=== PATIENT | male | born 1965 ===

== ENCOUNTER 2023-10-07 14:45 | Inpatient (IN) | payer SELFPAY ==
[2023-10-07 16:02] LABS: A/G RATIO 1.1; ACETAMINOPHEN 0 ug/mL (10-30 (Therapeutic)); ALANINE AMINOTRANSFERASE,ALT 15 U/L (16-63); ALBUMIN 3.9 g/dL (3.4-5.0); ALKALINE PHOSPHATASE 85 U/L (46-116); ANION GAP 9.1 mEq/L (7-13); ASPARTATE AMNIOTRANSFERASE,AST 11 U/L (15-37); BILIRUBIN TOTAL 0.9 mg/dL (0.2-1.0); BLOOD UREA NITROGEN,BUN 13 mg/dL (7-18); BUN/CREATININE RATIO 13.3 (No establ ref range); CALCIUM 9.2 mg/dL (8.5-10.1); CARBON DIOXIDE,CO2 31 mmol/L (21-32); CHLORIDE,CL 103 mmol/L (98-107); CREATININE 0.98 mg/dL (0.70-1.30); EST CRCL DRUG DOSING (CG) 79.49 mL/min; ESTIMATED GFR 89 mL/min (>=60); ETHANOL BLOOD MEDICAL < 3 mg/dL (0); GLUCOSE RANDOM 121 mg/dL (70-99); POTASSIUM,K 3.1 mmol/L (3.5-5.1); PROTEIN TOTAL,TP 7.5 g/dL (6.4-8.2); SODIUM,NA 140 mmol/L (136-145)
[2023-10-07 16:06] LABS: BASOPHILS PERCENT AUTO 0.5 % (0.0-1.0); EOSINOPHILS PERCENT AUTO 2.9 % (1.0-3.0); HEMATOCRIT 53.7 % (40.0-54.0); HEMOGLOBIN 18.9 g/dL (14.0-18.0); LYMPHOCYTES PERCENT AUTO 24.7 % (20.5-50.1); MEAN CORPUSCULAR HEMOGLOBIN 35.5 pg (27.0-34.0); MEAN CORPUSCULAR HGB CONC 35.2 g/dL (33.0-35.0); MEAN CORPUSCULAR VOLUME 100.9 fL (80-100); MONOCYTES PERCENT AUTO 13.8 % (2-8); NEUTROPHILS PERCENT AUTO 58.1 % (42.2-75.2); PLATELET COUNT,PLT 164 10^3/uL (150-450); RED BLOOD CELL COUNT 5.32 10^6/uL (4.6-6.2)
[2023-10-07] MEDS ORDERED: Lactated Ringers 1,000 ML IV ONE (16:12)
[2023-10-07 16:15] LABS: CORONAVIRUS COVID-19 NAA NEGATIVE (NEGATIVE); INFLUENZA A NAA NEGATIVE (NEGATIVE); INFLUENZA B NAA NEGATIVE (NEGATIVE)
[2023-10-07] MEDS ORDERED: Aspirin 81 MG Tab.Chew PO ONE (16:58)
[2023-10-07] MEDS ORDERED: Clopidogrel 75 MG Tab PO ONE (16:58)
[2023-10-07] MEDS ORDERED: hydrALAZINE 20 MG/ML SDV IVPUSH ONE (16:59)
[2023-10-07] MEDS ORDERED: Naloxone 2 MG/2 ML Syringe IVPUSH PRN (17:21)
[2023-10-07] MEDS ORDERED: Sennosides/Docusate Sodium 50-8.6 MG Tab PO PRN (17:21)
[2023-10-07] MEDS ORDERED: Albuterol/Ipratropium 3.0-0.5 MG/3 ML Neb Soln NEB PRN (17:21)
[2023-10-07] MEDS ORDERED: HYDROmorphone 0.5 MG/0.5 ML Syringe IVPUSH PRN (17:21)
[2023-10-07] MEDS ORDERED: Magnesium Hydroxide 400 MG/5 ML Susp 30 ML Cup PO PRN (17:21)
[2023-10-07 17:23] LABS: HEMOGLOBIN A1C 4.8 % (<5.7)
[2023-10-07 17:27] LABS: APPEARANCE,URINE CLEAR (CLEAR); BILIRUBIN,URINE NEGATIVE (NEGATIVE); COLOR,URINE YELLOW (YELLOW); GLUCOSE,URINE NEGATIVE (NEGATIVE); KETONES,URINE NEGATIVE (NEGATIVE); LEUKOCYTE ESTERASE,URINE NEGATIVE (NEGATIVE); NITRITE,URINE NEGATIVE (NEGATIVE); OCCULT BLOOD,URINE NEGATIVE (NEGATIVE); PROTEIN,URINE NEGATIVE (NEGATIVE)
[2023-10-07 17:28] LABS: AMPHETAMINES,URINE NEGATIVE (NEGATIVE); BARBITURATES,URINE NEGATIVE (NEGATIVE); BENZODIAZEPINE,URINE NEGATIVE (NEGATIVE); MDMA (ECSTASY), URINE NEGATIVE (NEGATIVE); METHADONE,URINE NEGATIVE (NEGATIVE); METHAMPHETAMINES,URINE NEGATIVE (NEGATIVE); OPIATES,URINE NEGATIVE (NEGATIVE); OXYCODONE,URINE NEGATIVE (NEGATIVE); PHENCYCLIDINE,URINE NEGATIVE (NEGATIVE); TCA,URINE NEGATIVE (NEGATIVE)
[2023-10-07] MEDS ORDERED: 50% Dextrose in Water 50 ML Syringe IVPUSH PRN (17:28)
[2023-10-07] MEDS ORDERED: Glucagon,Human Recombinant 1 MG Vial IM PRN (17:28)
[2023-10-07] MEDS ORDERED: Potassium Chloride 20 MEQ in Premix Bag 1 BAG IV ONE (17:32)
[2023-10-07 17:34] LABS: T4 FREE 1.03 ng/dL (0.76-1.46); TSH ULTRASENSITIVE 1.38 uIU/mL (0.36-3.74)
[2023-10-07] MEDS ORDERED: MVI, Adult with Vitamin K 10 ML, Folic Acid 1 MG, Thiamine 100 MG in Lactated Ringers 1... IV ONE ×4 (18:02)
[2023-10-07] MEDS ORDERED: Thiamine 100 MG in Sodium Chloride 0.9% 50 ML IV ONE (18:02)
[2023-10-07] MEDS ORDERED: Haloperidol Lactate 5 MG/ML SDV IM PRN (18:02)
[2023-10-07] MEDS ORDERED: LORazepam 2 MG/ML SDV IV PRN (18:02)
[2023-10-07] MEDS ORDERED: LORazepam 0.5 MG Tab PO PRN (18:02)
[2023-10-07] MEDS: niCARdipine/Normal Saline 20 MG in Premix Bag 1 BAG IV SCH ×2 (18:45→22:48)
[2023-10-07] MEDS ORDERED: Temazepam 15 MG Cap PO PRN (20:20)
[2023-10-07] MEDS ORDERED: Nicotine 21 MG/24 Hr Patch TRDERM ONE (20:38)
[2023-10-07] MEDS: Melatonin 3 MG Tab PO PRN (22:30)
[2023-10-08] MEDS: Pantoprazole 40 MG Tab.CR PO SCH (05:40)
[2023-10-08 05:59] LABS: BASOPHILS PERCENT AUTO 0.7 % (0.0-1.0); EOSINOPHILS PERCENT AUTO 3.1 % (1.0-3.0); HEMATOCRIT 49.7 % (40.0-54.0); HEMOGLOBIN 17.4 g/dL (14.0-18.0); LYMPHOCYTES PERCENT AUTO 24.7 % (20.5-50.1); MEAN CORPUSCULAR HEMOGLOBIN 35.2 pg (27.0-34.0); MEAN CORPUSCULAR VOLUME 100.6 fL (80-100); MONOCYTES PERCENT AUTO 12.9 % (2-8); NEUTROPHILS PERCENT AUTO 58.6 % (42.2-75.2); PLATELET COUNT,PLT 153 10^3/uL (150-450); RED BLOOD CELL COUNT 4.94 10^6/uL (4.6-6.2); WHITE BLOOD CELL COUNT,WBC 6.1 10^3/uL (5.0-10.0)
[2023-10-08 06:26] LABS: ANION GAP 9.1 mEq/L (7-13); BILIRUBIN TOTAL 1.4 mg/dL (0.2-1.0); CALCIUM 8.4 mg/dL (8.5-10.1); CREATININE 0.78 mg/dL (0.70-1.30); EST CRCL DRUG DOSING (CG) 109.95 mL/min; MAGNESIUM 1.9 mg/dL (1.8-2.4); POTASSIUM,K 3.1 mmol/L (3.5-5.1); PROTEIN TOTAL,TP 6.2 g/dL (6.4-8.2)
[2023-10-08 06:30] LABS: A/G RATIO 0.94
[2023-10-08] MEDS: Hydrochlorothiazide 25 MG Tab PO SCH (08:15)
[2023-10-08] MEDS: Insulin Lispro 100 Units/ML 3 ML Vial SUBCUT SCH ×3 (08:19→17:12)
[2023-10-08] MEDS ORDERED: Losartan 25 MG Tab PO SCH (09:00)
[2023-10-08] MEDS ORDERED: FLU (Fluarix Quad) QS2023-24(6MOS UP)/PF 60 MCG/0.5 ML Syringe IM ONE (10:00)
[2023-10-08] MEDS ORDERED: Potassium Chloride 10 MEQ Tab.ER PO ONE ×2 (11:24→17:00)
[2023-10-08] MEDS ORDERED: Metoprolol Tartrate 5 MG/5 ML SDV IVPUSH PRN (12:03)
[2023-10-08] MEDS ORDERED: Aspirin 81 MG Tab.Chew PO ONE (12:03)
[2023-10-08] MEDS ORDERED: cloNIDine 0.1 MG Tab PO ONE (12:04)
[2023-10-08] MEDS: hydrALAZINE 20 MG/ML SDV IVPUSH PRN ×2 (12:19→16:46)
[2023-10-08] MEDS: Acetaminophen 325 MG Tab PO PRN (17:26)
[2023-10-08] MEDS: cloNIDine 0.1 MG Tab PO SCH (20:25)
[2023-10-08] MEDS: Multivitamin Tab PO SCH (20:34)
[2023-10-08] MEDS: Folic Acid 1 MG Tab PO SCH (20:34)
[2023-10-08] MEDS: Thiamine 100 MG Tab PO SCH (20:34)
[2023-10-09] MEDS: Pantoprazole 40 MG Tab.CR PO SCH (06:08)
[2023-10-09] MEDS: hydrALAZINE 20 MG/ML SDV IVPUSH PRN ×2 (06:08→12:13)
[2023-10-09 06:27] LABS: BASOPHILS PERCENT AUTO 0.2 % (0.0-1.0); EOSINOPHILS PERCENT AUTO 1.2 % (1.0-3.0); HEMATOCRIT 50.6 % (40.0-54.0); HEMOGLOBIN 17.5 g/dL (14.0-18.0); LYMPHOCYTES PERCENT AUTO 12.8 % (20.5-50.1); MEAN CORPUSCULAR HEMOGLOBIN 35.2 pg (27.0-34.0); MEAN CORPUSCULAR HGB CONC 34.6 g/dL (33.0-35.0); MEAN CORPUSCULAR VOLUME 101.8 fL (80-100); NEUTROPHILS PERCENT AUTO 73.8 % (42.2-75.2); PLATELET COUNT,PLT 173 10^3/uL (150-450); RED BLOOD CELL COUNT 4.97 10^6/uL (4.6-6.2); WHITE BLOOD CELL COUNT,WBC 9.8 10^3/uL (5.0-10.0)
[2023-10-09 06:48] LABS: ALBUMIN 3.1 g/dL (3.4-5.0); ANION GAP 10.5 mEq/L (7-13); BILIRUBIN TOTAL 1.7 mg/dL (0.2-1.0); BUN/CREATININE RATIO 12.2 (No establ ref range); CALCIUM 8.6 mg/dL (8.5-10.1); CREATININE 0.98 mg/dL (0.70-1.30); EST CRCL DRUG DOSING (CG) 87.51 mL/min; MAGNESIUM 1.9 mg/dL (1.8-2.4); POTASSIUM,K 3.5 mmol/L (3.5-5.1); PROTEIN TOTAL,TP 6.5 g/dL (6.4-8.2)
[2023-10-09 06:52] LABS: A/G RATIO 0.91
[2023-10-09] MEDS: Aspirin 81 MG Tab.Chew PO SCH (08:23)
[2023-10-09] MEDS: Losartan 25 MG Tab PO SCH (08:24)
[2023-10-09] MEDS: Thiamine 100 MG Tab PO SCH (08:25)
[2023-10-09] MEDS: Hydrochlorothiazide 25 MG Tab PO SCH (08:25)
[2023-10-09] MEDS: Folic Acid 1 MG Tab PO SCH (08:25)
[2023-10-09] MEDS: Multivitamin Tab PO SCH (08:25)
[2023-10-09] MEDS: Insulin Lispro 100 Units/ML 3 ML Vial SUBCUT SCH ×3 (08:26→17:09)
[2023-10-09] MEDS: Acetaminophen 325 MG Tab PO PRN (10:59)
[2023-10-09] MEDS: traMADol 50 MG Tab PO PRN (12:11)
[2023-10-09] MEDS: cloNIDine 0.1 MG Tab PO SCH (20:05)
[2023-10-10] MEDS: Pantoprazole 40 MG Tab.CR PO SCH (05:45)
[2023-10-10 05:47] LABS: BASOPHILS PERCENT AUTO 0.2 % (0.0-1.0); EOSINOPHILS PERCENT AUTO 0.5 % (1.0-3.0); HEMATOCRIT 49.8 % (40.0-54.0); HEMOGLOBIN 17.3 g/dL (14.0-18.0); LYMPHOCYTES PERCENT AUTO 11.8 % (20.5-50.1); MEAN CORPUSCULAR HEMOGLOBIN 35.3 pg (27.0-34.0); MEAN CORPUSCULAR HGB CONC 34.7 g/dL (33.0-35.0); MEAN CORPUSCULAR VOLUME 101.6 fL (80-100); MONOCYTES PERCENT AUTO 17.2 % (2-8); NEUTROPHILS PERCENT AUTO 70.3 % (42.2-75.2); PLATELET COUNT,PLT 164 10^3/uL (150-450)
[2023-10-10 06:16] LABS: ALBUMIN 3.1 g/dL (3.4-5.0); ANION GAP 10.5 mEq/L (7-13); BILIRUBIN TOTAL 2.6 mg/dL (0.2-1.0); BUN/CREATININE RATIO 16.3 (No establ ref range); CALCIUM 8.8 mg/dL (8.5-10.1); CREATININE 0.92 mg/dL (0.70-1.30); EST CRCL DRUG DOSING (CG) 93.22 mL/min; POTASSIUM,K 3.5 mmol/L (3.5-5.1); PROTEIN TOTAL,TP 6.9 g/dL (6.4-8.2)
[2023-10-10 06:24] LABS: A/G RATIO 0.82
[2023-10-10] MEDS: Insulin Lispro 100 Units/ML 3 ML Vial SUBCUT SCH ×3 (08:14→18:43)
[2023-10-10] MEDS: Losartan 25 MG Tab PO SCH (08:25)
[2023-10-10] MEDS: traMADol 50 MG Tab PO PRN (08:26)
[2023-10-10] MEDS: Multivitamin Tab PO SCH (08:27)
[2023-10-10] MEDS: Thiamine 100 MG Tab PO SCH (08:27)
[2023-10-10] MEDS: Aspirin 81 MG Tab.Chew PO SCH (08:27)
[2023-10-10] MEDS: Hydrochlorothiazide 25 MG Tab PO SCH (08:27)
[2023-10-10] MEDS: Atenolol 25 MG Tab PO SCH ×2 (08:27→20:37)
[2023-10-10] MEDS: Folic Acid 1 MG Tab PO SCH (08:27)
[2023-10-10] MEDS ORDERED: Lidocaine 5% 700 MG Patch TOP ONE (10:34)
[2023-10-10] MEDS: Acetaminophen/oxyCODONE 325-5 MG Tab PO PRN ×2 (11:21→23:58)
[2023-10-10] MEDS: cloNIDine 0.1 MG Tab PO SCH ×2 (11:22→20:38)
[2023-10-10] MEDS: amLODIPine 5 MG Tab PO SCH (20:37)
[2023-10-10] MEDS: Acetaminophen 325 MG Tab PO PRN (20:46)
[2023-10-10] MEDS: hydrALAZINE 20 MG/ML SDV IVPUSH PRN (20:47)
[2023-10-11] MEDS: Pantoprazole 40 MG Tab.CR PO SCH ×2 (05:37→16:30)
[2023-10-11 06:22] LABS: URIC ACID 8.5 mg/dL (3.5-7.2)
[2023-10-11 06:25] LABS: C-REACTIVE PROTEIN > 25.00 ng/dL (<=0.50)
[2023-10-11] MEDS: Insulin Lispro 100 Units/ML 3 ML Vial SUBCUT SCH ×3 (08:18→16:30)
[2023-10-11] MEDS: Atenolol 25 MG Tab PO SCH ×2 (08:26→20:40)
[2023-10-11] MEDS: Thiamine 100 MG Tab PO SCH (08:27)
[2023-10-11] MEDS: Losartan 25 MG Tab PO SCH (08:27)
[2023-10-11] MEDS: Aspirin 81 MG Tab.Chew PO SCH (08:27)
[2023-10-11] MEDS: cloNIDine 0.1 MG Tab PO SCH ×2 (08:27→20:41)
[2023-10-11] MEDS: Hydrochlorothiazide 25 MG Tab PO SCH (08:27)
[2023-10-11] MEDS: Lidocaine 5% 700 MG Patch TOP SCH (08:28)
[2023-10-11] MEDS: Multivitamin Tab PO SCH (08:32)
[2023-10-11] MEDS: Acetaminophen 325 MG Tab PO PRN (08:32)
[2023-10-11] MEDS: Polyethylene Glycol 3350 Powder 17 GM Packet PO PRN (08:33)
[2023-10-11] MEDS: Dexamethasone 4 MG Tab PO SCH (09:50)
[2023-10-11] MEDS: Furosemide 40 MG Tab PO SCH (09:50)
[2023-10-11] MEDS: Naproxen 250 MG Tab PO SCH ×2 (09:50→20:42)
[2023-10-11] MEDS ORDERED: Colchicine 0.6 MG Tab PO ONE (10:29)
[2023-10-11] MEDS: traMADol 50 MG Tab PO PRN (14:28)
[2023-10-11] MEDS: Nicotine 21 MG/24 Hr Patch TRDERM PRN (15:46)
[2023-10-11] MEDS: Colchicine 0.6 MG Tab PO SCH (20:40)
[2023-10-11] MEDS: amLODIPine 5 MG Tab PO SCH (20:42)
[2023-10-12] MEDS: Pantoprazole 40 MG Tab.CR PO SCH ×2 (05:23→16:55)
[2023-10-12] MEDS: Lidocaine 5% 700 MG Patch TOP SCH (08:53)
[2023-10-12] MEDS: cloNIDine 0.1 MG Tab PO SCH (08:54)
[2023-10-12] MEDS: Furosemide 40 MG Tab PO SCH (08:54)
[2023-10-12] MEDS: Aspirin 81 MG Tab.Chew PO SCH (08:54)
[2023-10-12] MEDS: Naproxen 250 MG Tab PO SCH ×2 (08:55→20:30)
[2023-10-12] MEDS: Colchicine 0.6 MG Tab PO SCH ×2 (08:55→20:31)
[2023-10-12] MEDS: Losartan 25 MG Tab PO SCH (08:55)
[2023-10-12] MEDS: Multivitamin Tab PO SCH (08:55)
[2023-10-12] MEDS: Dexamethasone 4 MG Tab PO SCH (08:55)
[2023-10-12] MEDS: Thiamine 100 MG Tab PO SCH (08:58)
[2023-10-12] MEDS: Insulin Lispro 100 Units/ML 3 ML Vial SUBCUT SCH ×3 (09:00→18:17)
[2023-10-12] MEDS: Atenolol 25 MG Tab PO SCH ×2 (09:49→20:30)
[2023-10-12] MEDS ORDERED: Haloperidol Lactate 5 MG/ML SDV IM PRN (17:47)
[2023-10-12] MEDS ORDERED: MVI, Adult with Vitamin K 10 ML, Folic Acid 1 MG, Thiamine 100 MG in Lactated Ringers 1... IV ONE ×4 (17:52)
[2023-10-12] MEDS ORDERED: Flumazenil 0.1 MG/ML 5 ML MDV IVPUSH PRN (20:21)
[2023-10-12] MEDS: chlordiazePOXIDE 25 MG Cap PO SCH (20:30)
[2023-10-12] MEDS: amLODIPine 5 MG Tab PO SCH (20:30)
[2023-10-12] MEDS ORDERED: QUEtiapine 25 MG Tab PO SCH (21:00)
[2023-10-12] MEDS: LORazepam 2 MG/ML SDV IV PRN (22:46)
[2023-10-13] MEDS: Pantoprazole 40 MG Tab.CR PO SCH ×2 (05:00→15:07)
[2023-10-13] MEDS: LORazepam 2 MG/ML SDV IV PRN (05:12)
[2023-10-13 07:05] LABS: ALBUMIN 2.8 g/dL (3.4-5.0); ANION GAP 12.4 mEq/L (7-13); BILIRUBIN TOTAL 1.8 mg/dL (0.2-1.0); BUN/CREATININE RATIO 37.6 (No establ ref range); CALCIUM 9.2 mg/dL (8.5-10.1); CREATININE 1.57 mg/dL (0.70-1.30); EST CRCL DRUG DOSING (CG) 54.62 mL/min; MAGNESIUM 2.6 mg/dL (1.8-2.4); POTASSIUM,K 3.4 mmol/L (3.5-5.1); PROTEIN TOTAL,TP 7.1 g/dL (6.4-8.2)
[2023-10-13 07:05] LABS: BASOPHILS PERCENT AUTO 0.2 % (0.0-1.0); EOSINOPHILS PERCENT AUTO 0.9 % (1.0-3.0); HEMATOCRIT 49.6 % (40.0-54.0); HEMOGLOBIN 17.3 g/dL (14.0-18.0); LYMPHOCYTES PERCENT AUTO 12.1 % (20.5-50.1); MEAN CORPUSCULAR HEMOGLOBIN 35.5 pg (27.0-34.0); MEAN CORPUSCULAR HGB CONC 34.9 g/dL (33.0-35.0); MEAN CORPUSCULAR VOLUME 101.8 fL (80-100); MONOCYTES PERCENT AUTO 14.1 % (2-8); NEUTROPHILS PERCENT AUTO 72.7 % (42.2-75.2); PLATELET COUNT,PLT 307 10^3/uL (150-450); RED BLOOD CELL COUNT 4.87 10^6/uL (4.6-6.2); WHITE BLOOD CELL COUNT,WBC 8.9 10^3/uL (5.0-10.0)
[2023-10-13 07:10] LABS: A/G RATIO 0.65
[2023-10-13 07:29] LABS: C-REACTIVE PROTEIN 15.24 ng/dL (<=0.50)
[2023-10-13] MEDS ORDERED: Potassium Chloride 10 MEQ Tab.ER PO ONE ×2 (11:30→12:15)
[2023-10-13] MEDS: Lidocaine 5% 700 MG Patch TOP SCH (12:08)
[2023-10-13] MEDS: Multivitamin Tab PO SCH (12:09)
[2023-10-13] MEDS: Polyethylene Glycol 3350 Powder 17 GM Packet PO PRN (12:09)
[2023-10-13] MEDS: Atenolol 25 MG Tab PO SCH ×2 (12:10→21:08)
[2023-10-13] MEDS: chlordiazePOXIDE 25 MG Cap PO SCH ×3 (12:10→21:07)
[2023-10-13] MEDS: Naproxen 250 MG Tab PO SCH (12:10)
[2023-10-13] MEDS: Thiamine 100 MG Tab PO SCH (12:10)
[2023-10-13] MEDS: Folic Acid 1 MG Tab PO SCH (12:10)
[2023-10-13] MEDS: Furosemide 40 MG Tab PO SCH (12:10)
[2023-10-13] MEDS: Losartan 25 MG Tab PO SCH (12:11)
[2023-10-13] MEDS: Colchicine 0.6 MG Tab PO SCH ×2 (12:11→21:06)
[2023-10-13] MEDS: Aspirin 81 MG Tab.Chew PO SCH (12:13)
[2023-10-13] MEDS: Insulin Lispro 100 Units/ML 3 ML Vial SUBCUT SCH ×2 (12:40→18:08)
[2023-10-13] MEDS: amLODIPine 5 MG Tab PO SCH (21:06)
[2023-10-14] MEDS: chlordiazePOXIDE 25 MG Cap PO SCH ×3 (06:17→20:08)
[2023-10-14] MEDS: Pantoprazole 40 MG Tab.CR PO SCH ×2 (06:17→15:08)
[2023-10-14 06:37] LABS: BASOPHILS PERCENT AUTO 0.9 % (0.0-1.0); EOSINOPHILS PERCENT AUTO 4.2 % (1.0-3.0); HEMATOCRIT 52.6 % (40.0-54.0); HEMOGLOBIN 17.7 g/dL (14.0-18.0); LYMPHOCYTES PERCENT AUTO 24.6 % (20.5-50.1); MEAN CORPUSCULAR HEMOGLOBIN 34.6 pg (27.0-34.0); MEAN CORPUSCULAR HGB CONC 33.7 g/dL (33.0-35.0); MEAN CORPUSCULAR VOLUME 102.7 fL (80-100); MONOCYTES PERCENT AUTO 17.4 % (2-8); NEUTROPHILS PERCENT AUTO 52.9 % (42.2-75.2); PLATELET COUNT,PLT 218 10^3/uL (150-450); RED BLOOD CELL COUNT 5.12 10^6/uL (4.6-6.2); WHITE BLOOD CELL COUNT,WBC 5.5 10^3/uL (5.0-10.0)
[2023-10-14 06:56] LABS: ALBUMIN 2.9 g/dL (3.4-5.0); ANION GAP 11.5 mEq/L (7-13); BILIRUBIN TOTAL 2.3 mg/dL (0.2-1.0); BUN/CREATININE RATIO 39.5 (No establ ref range); C-REACTIVE PROTEIN 8.23 ng/dL (<=0.50); CREATININE 1.24 mg/dL (0.70-1.30); EST CRCL DRUG DOSING (CG) 69.16 mL/min; MAGNESIUM 2.3 mg/dL (1.8-2.4); POTASSIUM,K 3.5 mmol/L (3.5-5.1); PROTEIN TOTAL,TP 7.1 g/dL (6.4-8.2)
[2023-10-14 06:57] LABS: A/G RATIO 0.69
[2023-10-14] MEDS: Atenolol 25 MG Tab PO SCH ×2 (09:08→20:08)
[2023-10-14] MEDS: Lidocaine 5% 700 MG Patch TOP SCH (09:08)
[2023-10-14] MEDS: Aspirin 81 MG Tab.Chew PO SCH (09:08)
[2023-10-14] MEDS: Acetaminophen 325 MG Tab PO PRN (09:09)
[2023-10-14] MEDS: Furosemide 40 MG Tab PO SCH (09:09)
[2023-10-14] MEDS: Multivitamin Tab PO SCH (09:09)
[2023-10-14] MEDS: Losartan 25 MG Tab PO SCH (09:09)
[2023-10-14] MEDS: Folic Acid 1 MG Tab PO SCH (09:09)
[2023-10-14] MEDS: Colchicine 0.6 MG Tab PO SCH ×2 (09:10→20:08)
[2023-10-14] MEDS: Insulin Lispro 100 Units/ML 3 ML Vial SUBCUT SCH ×3 (09:20→17:45)
[2023-10-14] MEDS: Thiamine 100 MG Tab PO SCH (09:23)
[2023-10-14] MEDS: amLODIPine 5 MG Tab PO SCH (20:07)
[2023-10-15 05:49] LABS: BASOPHILS PERCENT AUTO 0.9 % (0.0-1.0); EOSINOPHILS PERCENT AUTO 4.6 % (1.0-3.0); HEMATOCRIT 52.7 % (40.0-54.0); HEMOGLOBIN 17.8 g/dL (14.0-18.0); LYMPHOCYTES PERCENT AUTO 20.9 % (20.5-50.1); MEAN CORPUSCULAR HEMOGLOBIN 35.2 pg (27.0-34.0); MEAN CORPUSCULAR HGB CONC 33.8 g/dL (33.0-35.0); MEAN CORPUSCULAR VOLUME 104.2 fL (80-100); NEUTROPHILS PERCENT AUTO 57.6 % (42.2-75.2); PLATELET COUNT,PLT 252 10^3/uL (150-450); RED BLOOD CELL COUNT 5.06 10^6/uL (4.6-6.2); WHITE BLOOD CELL COUNT,WBC 6.3 10^3/uL (5.0-10.0)
[2023-10-15] MEDS: chlordiazePOXIDE 25 MG Cap PO SCH ×2 (06:10→21:48)
[2023-10-15] MEDS: Pantoprazole 40 MG Tab.CR PO SCH ×2 (06:10→17:04)
[2023-10-15 06:13] LABS: ALBUMIN 2.9 g/dL (3.4-5.0); ANION GAP 10.7 mEq/L (7-13); BILIRUBIN TOTAL 1.5 mg/dL (0.2-1.0); BUN/CREATININE RATIO 32.5 (No establ ref range); C-REACTIVE PROTEIN 4.72 ng/dL (<=0.50); CALCIUM 9.1 mg/dL (8.5-10.1); CREATININE 1.17 mg/dL (0.70-1.30); EST CRCL DRUG DOSING (CG) 73.3 mL/min; MAGNESIUM 2.4 mg/dL (1.8-2.4); POTASSIUM,K 3.7 mmol/L (3.5-5.1); PROTEIN TOTAL,TP 7.3 g/dL (6.4-8.2)
[2023-10-15 06:17] LABS: A/G RATIO 0.66
[2023-10-15] MEDS: Multivitamin Tab PO SCH (08:35)
[2023-10-15] MEDS: Folic Acid 1 MG Tab PO SCH (08:35)
[2023-10-15] MEDS: Losartan 25 MG Tab PO SCH (08:35)
[2023-10-15] MEDS: Aspirin 81 MG Tab.Chew PO SCH (08:35)
[2023-10-15] MEDS: Lidocaine 5% 700 MG Patch TOP SCH (08:35)
[2023-10-15] MEDS: Furosemide 40 MG Tab PO SCH (08:36)
[2023-10-15] MEDS ORDERED: buPROPion 150 MG Tab.ER PO ONE (09:15)
[2023-10-15] MEDS: Atenolol 25 MG Tab PO SCH (10:07)
[2023-10-15] MEDS: Insulin Lispro 100 Units/ML 3 ML Vial SUBCUT SCH (10:08)
[2023-10-15] MEDS: Thiamine 100 MG Tab PO SCH (10:16)
[2023-10-15] MEDS ORDERED: chlordiazePOXIDE 25 MG Cap PO SCH (21:00)
[2023-10-15] MEDS: amLODIPine 5 MG Tab PO SCH (21:48)
[2023-10-15] MEDS: Menthol/Zinc Oxide Ointment 113 GM Tube TOP PRN (22:15)
[2023-10-15] MEDS: Nystatin Topical Powder 30 GM Bottle TOP PRN (22:16)
[2023-10-16] MEDS: Pantoprazole 40 MG Tab.CR PO SCH ×2 (05:43→15:27)
[2023-10-16] MEDS: Menthol/Zinc Oxide Ointment 113 GM Tube TOP PRN ×2 (08:00→21:16)
[2023-10-16] MEDS ORDERED: guaiFENesin 600 MG Tab.ER PO SCH (09:00)
[2023-10-16] MEDS ORDERED: Formoterol/Mometasone 100-5 MCG 8.8 GM Inhaler IH SCH (09:00)
[2023-10-16] MEDS ORDERED: Azithromycin 250 MG Tab PO ONE (09:00)
[2023-10-16] MEDS: Aspirin 81 MG Tab.Chew PO SCH (09:01)
[2023-10-16] MEDS: Multivitamin Tab PO SCH (09:02)
[2023-10-16] MEDS: Losartan 25 MG Tab PO SCH (09:02)
[2023-10-16] MEDS: buPROPion 150 MG Tab.ER PO SCH (09:02)
[2023-10-16] MEDS: Thiamine 100 MG Tab PO SCH (09:02)
[2023-10-16] MEDS: Furosemide 40 MG Tab PO SCH (09:02)
[2023-10-16] MEDS: Lidocaine 5% 700 MG Patch TOP SCH (09:03)
[2023-10-16] MEDS: Nystatin Topical Powder 30 GM Bottle TOP PRN ×2 (09:04→21:17)
[2023-10-16] MEDS: amLODIPine 5 MG Tab PO SCH (21:14)
[2023-10-16] MEDS: Acetaminophen 325 MG Tab PO PRN (21:15)
[2023-10-16] MEDS: Melatonin 3 MG Tab PO PRN (21:15)
[2023-10-16] MEDS: chlordiazePOXIDE 25 MG Cap PO SCH (21:15)
[2023-10-17] MEDS: Pantoprazole 40 MG Tab.CR PO SCH ×2 (06:34→16:48)
[2023-10-17] MEDS: Lidocaine 5% 700 MG Patch TOP SCH (08:36)
[2023-10-17] MEDS: Furosemide 40 MG Tab PO SCH (08:37)
[2023-10-17] MEDS: buPROPion 150 MG Tab.ER PO SCH (08:38)
[2023-10-17] MEDS: Multivitamin Tab PO SCH (08:38)
[2023-10-17] MEDS: Aspirin 81 MG Tab.Chew PO SCH (08:38)
[2023-10-17] MEDS: Thiamine 100 MG Tab PO SCH (08:38)
[2023-10-17] MEDS: Losartan 25 MG Tab PO SCH (08:38)
[2023-10-17] MEDS ORDERED: Azithromycin 250 MG Tab PO SCH (09:00)
[2023-10-17] MEDS ORDERED: Tiotropium Bromide 4 GM Inhalation Spray (2.5mcg/1 dose; 10 doses) INH SCH (09:00)
[2023-10-17 15:26] LABS: APPEARANCE,URINE CLEAR (CLEAR); BILIRUBIN,URINE NEGATIVE (NEGATIVE); COLOR,URINE YELLOW (YELLOW); GLUCOSE,URINE NEGATIVE (NEGATIVE); KETONES,URINE NEGATIVE (NEGATIVE); LEUKOCYTE ESTERASE,URINE NEGATIVE (NEGATIVE); NITRITE,URINE NEGATIVE (NEGATIVE); OCCULT BLOOD,URINE SMALL (NEGATIVE); PH,URINE 5.5 (5.0-9.0); PROTEIN,URINE NEGATIVE (NEGATIVE); UROBILINOGEN,URINE 0.2 mg/dL (0.2-1.0)
[2023-10-17 15:33] LABS: BACTERIA,URINE FEW /HPF (0-FEW/HPF); EPITHELIAL CELLS,URINE RARE /HPF (NOT SEEN); HYALINE CASTS,URINE FEW
[2023-10-17 15:34] LABS: AMORPHOUS SEDIMENT,URINE FEW /HPF (NOT SEEN); MUCUS,URINE FEW /LPF (NOT SEEN); RBC,URINE 20-30 /HPF (0-5); WBC,URINE 0-5 /HPF (0-5/HPF)
[2023-10-17] MEDS: Acetaminophen 325 MG Tab PO PRN (20:58)
[2023-10-17] MEDS: Menthol/Zinc Oxide Ointment 113 GM Tube TOP PRN (20:58)
[2023-10-17] MEDS: amLODIPine 5 MG Tab PO SCH (20:59)
[2023-10-17] MEDS: chlordiazePOXIDE 25 MG Cap PO SCH (20:59)
[2023-10-17] MEDS: Apixaban 5 MG Tab PO SCH (20:59)
[2023-10-17] MEDS: Melatonin 3 MG Tab PO PRN (20:59)
[2023-10-18] MEDS: Pantoprazole 40 MG Tab.CR PO SCH ×2 (05:11→16:19)
[2023-10-18 06:31] LABS: BASOPHILS PERCENT AUTO 0.9 % (0.0-1.0); EOSINOPHILS PERCENT AUTO 8.1 % (1.0-3.0); HEMATOCRIT 52.6 % (40.0-54.0); HEMOGLOBIN 17.8 g/dL (14.0-18.0); LYMPHOCYTES PERCENT AUTO 23.3 % (20.5-50.1); MEAN CORPUSCULAR HGB CONC 33.8 g/dL (33.0-35.0); MEAN CORPUSCULAR VOLUME 103.5 fL (80-100); MONOCYTES PERCENT AUTO 11.3 % (2-8); NEUTROPHILS PERCENT AUTO 56.4 % (42.2-75.2); PLATELET COUNT,PLT 243 10^3/uL (150-450); RED BLOOD CELL COUNT 5.08 10^6/uL (4.6-6.2); WHITE BLOOD CELL COUNT,WBC 7.1 10^3/uL (5.0-10.0)
[2023-10-18 06:47] LABS: ALBUMIN 3.2 g/dL (3.4-5.0); ANION GAP 10.8 mEq/L (7-13); BILIRUBIN TOTAL 1.3 mg/dL (0.2-1.0); BUN/CREATININE RATIO 22.9 (No establ ref range); C-REACTIVE PROTEIN 2.16 ng/dL (<=0.50); CALCIUM 9.3 mg/dL (8.5-10.1); CREATININE 1.31 mg/dL (0.70-1.30); EST CRCL DRUG DOSING (CG) 65.46 mL/min; MAGNESIUM 2.2 mg/dL (1.8-2.4); POTASSIUM,K 3.8 mmol/L (3.5-5.1); PROTEIN TOTAL,TP 7.4 g/dL (6.4-8.2); URIC ACID 11.2 mg/dL (3.5-7.2)
[2023-10-18 06:50] LABS: A/G RATIO 0.76
[2023-10-18] MEDS: Losartan 25 MG Tab PO SCH (08:50)
[2023-10-18] MEDS: Aspirin 81 MG Tab.Chew PO SCH (08:50)
[2023-10-18] MEDS: Multivitamin Tab PO SCH (08:50)
[2023-10-18] MEDS: buPROPion 150 MG Tab.ER PO SCH (08:50)
[2023-10-18] MEDS: Acetaminophen 325 MG Tab PO PRN ×2 (08:51→14:09)
[2023-10-18] MEDS: Thiamine 100 MG Tab PO SCH (08:51)
[2023-10-18] MEDS: Furosemide 40 MG Tab PO SCH (08:51)
[2023-10-18] MEDS: Apixaban 5 MG Tab PO SCH ×2 (08:51→21:02)
[2023-10-18] MEDS: Lidocaine 5% 700 MG Patch TOP SCH (08:52)
[2023-10-18] MEDS ORDERED: Enoxaparin 40 MG/0.4 ML Syringe SUBCUT SCH (09:00)
[2023-10-18] MEDS: chlordiazePOXIDE 25 MG Cap PO SCH (21:01)
[2023-10-18] MEDS: amLODIPine 5 MG Tab PO SCH (21:02)
[2023-10-18] MEDS: Menthol/Zinc Oxide Ointment 113 GM Tube TOP PRN (21:04)
[2023-10-18] MEDS: Nystatin Topical Powder 30 GM Bottle TOP PRN (21:04)
[2023-10-19] MEDS: Pantoprazole 40 MG Tab.CR PO SCH ×2 (05:18→16:04)
[2023-10-19] MEDS: buPROPion 150 MG Tab.ER PO SCH (09:43)
[2023-10-19] MEDS: Losartan 25 MG Tab PO SCH (09:43)
[2023-10-19] MEDS: Thiamine 100 MG Tab PO SCH (09:44)
[2023-10-19] MEDS: Aspirin 81 MG Tab.Chew PO SCH (09:44)
[2023-10-19] MEDS: Multivitamin Tab PO SCH (09:44)
[2023-10-19] MEDS: Acetaminophen 325 MG Tab PO PRN (09:44)
[2023-10-19] MEDS: Apixaban 5 MG Tab PO SCH ×2 (09:44→20:35)
[2023-10-19] MEDS: Furosemide 40 MG Tab PO SCH (09:44)
[2023-10-19] MEDS: Lidocaine 5% 700 MG Patch TOP SCH (09:46)
[2023-10-19] MEDS: chlordiazePOXIDE 25 MG Cap PO SCH (20:35)
[2023-10-19] MEDS: amLODIPine 5 MG Tab PO SCH (20:36)
[2023-10-20] MEDS: Pantoprazole 40 MG Tab.CR PO SCH ×2 (05:43→16:51)
[2023-10-20] MEDS: Aspirin 81 MG Tab.Chew PO SCH (08:07)
[2023-10-20] MEDS: Furosemide 40 MG Tab PO SCH (08:08)
[2023-10-20] MEDS: Sertraline 50 MG Tab PO SCH (08:08)
[2023-10-20] MEDS: Multivitamin Tab PO SCH (08:08)
[2023-10-20] MEDS: Losartan 25 MG Tab PO SCH (08:08)
[2023-10-20] MEDS: Acetaminophen 325 MG Tab PO PRN ×2 (08:09→20:14)
[2023-10-20] MEDS: Apixaban 5 MG Tab PO SCH ×2 (08:09→20:16)
[2023-10-20] MEDS: Lidocaine 5% 700 MG Patch TOP SCH (08:10)
[2023-10-20] MEDS: Thiamine 100 MG Tab PO SCH (08:12)
[2023-10-20] MEDS: Polyethylene Glycol 3350 Powder 17 GM Packet PO PRN (08:13)
[2023-10-20] MEDS: chlordiazePOXIDE 25 MG Cap PO SCH (20:14)
[2023-10-20] MEDS: Melatonin 3 MG Tab PO PRN (20:14)
[2023-10-20] MEDS: amLODIPine 5 MG Tab PO SCH (20:15)
[2023-10-20] MEDS: Nystatin Topical Powder 30 GM Bottle TOP PRN (22:52)
[2023-10-20] MEDS: Menthol/Zinc Oxide Ointment 113 GM Tube TOP PRN (22:53)
[2023-10-21] MEDS: Pantoprazole 40 MG Tab.CR PO SCH ×2 (05:34→15:11)
[2023-10-21 06:15] LABS: BASOPHILS PERCENT AUTO 0.8 % (0.0-1.0); EOSINOPHILS PERCENT AUTO 5.6 % (1.0-3.0); HEMATOCRIT 53.9 % (40.0-54.0); HEMOGLOBIN 18.2 g/dL (14.0-18.0); LYMPHOCYTES PERCENT AUTO 17.9 % (20.5-50.1); MEAN CORPUSCULAR HEMOGLOBIN 34.7 pg (27.0-34.0); MEAN CORPUSCULAR HGB CONC 33.8 g/dL (33.0-35.0); MEAN CORPUSCULAR VOLUME 102.9 fL (80-100); NEUTROPHILS PERCENT AUTO 64.7 % (42.2-75.2); PLATELET COUNT,PLT 220 10^3/uL (150-450); RED BLOOD CELL COUNT 5.24 10^6/uL (4.6-6.2); WHITE BLOOD CELL COUNT,WBC 6.5 10^3/uL (5.0-10.0)
[2023-10-21 06:35] LABS: ANION GAP 8.8 mEq/L (7-13); CALCIUM 9.5 mg/dL (8.5-10.1); CREATININE 1.2 mg/dL (0.70-1.30); EST CRCL DRUG DOSING (CG) 71.47 mL/min; POTASSIUM,K 3.8 mmol/L (3.5-5.1)
[2023-10-21] MEDS: Aspirin 81 MG Tab.Chew PO SCH (08:47)
[2023-10-21] MEDS: Apixaban 5 MG Tab PO SCH ×2 (08:47→20:38)
[2023-10-21] MEDS: Losartan 25 MG Tab PO SCH (08:48)
[2023-10-21] MEDS: Multivitamin Tab PO SCH (08:49)
[2023-10-21] MEDS: Furosemide 40 MG Tab PO SCH (08:49)
[2023-10-21] MEDS: Thiamine 100 MG Tab PO SCH (08:50)
[2023-10-21] MEDS: Lidocaine 5% 700 MG Patch TOP SCH (08:51)
[2023-10-21] MEDS: Sertraline 50 MG Tab PO SCH (08:51)
[2023-10-21] MEDS: Acetaminophen 325 MG Tab PO PRN (20:37)
[2023-10-21] MEDS: chlordiazePOXIDE 25 MG Cap PO SCH (20:37)
[2023-10-21] MEDS: amLODIPine 5 MG Tab PO SCH (20:38)
[2023-10-21] MEDS: atorvaSTATin 10 MG Tab PO SCH (20:38)
[2023-10-21] MEDS: Melatonin 3 MG Tab PO PRN (20:38)
[2023-10-22] MEDS: Pantoprazole 40 MG Tab.CR PO SCH ×2 (05:18→16:09)
[2023-10-22] MEDS: Aspirin 81 MG Tab.Chew PO SCH (09:27)
[2023-10-22] MEDS: Losartan 25 MG Tab PO SCH (09:27)
[2023-10-22] MEDS: Lidocaine 5% 700 MG Patch TOP SCH (09:27)
[2023-10-22] MEDS: Multivitamin Tab PO SCH (09:28)
[2023-10-22] MEDS: Thiamine 100 MG Tab PO SCH (09:28)
[2023-10-22] MEDS: Sertraline 50 MG Tab PO SCH (09:28)
[2023-10-22] MEDS: Apixaban 5 MG Tab PO SCH ×2 (09:28→20:42)
[2023-10-22] MEDS: Furosemide 40 MG Tab PO SCH (09:28)
[2023-10-22] MEDS: amLODIPine 5 MG Tab PO SCH (20:41)
[2023-10-22] MEDS: atorvaSTATin 10 MG Tab PO SCH (20:41)
[2023-10-22] MEDS: Acetaminophen 325 MG Tab PO PRN (20:42)
[2023-10-22] MEDS: chlordiazePOXIDE 25 MG Cap PO SCH (20:42)
[2023-10-22] MEDS: Melatonin 3 MG Tab PO PRN (20:42)
[2023-10-23] MEDS: Pantoprazole 40 MG Tab.CR PO SCH ×2 (05:17→16:35)
[2023-10-23] MEDS: Lidocaine 5% 700 MG Patch TOP SCH (09:29)
[2023-10-23] MEDS: Sertraline 50 MG Tab PO SCH (09:32)
[2023-10-23] MEDS: Aspirin 81 MG Tab.Chew PO SCH (09:32)
[2023-10-23] MEDS: Furosemide 40 MG Tab PO SCH (09:32)
[2023-10-23] MEDS: Multivitamin Tab PO SCH (09:32)
[2023-10-23] MEDS: Thiamine 100 MG Tab PO SCH (09:32)
[2023-10-23] MEDS: Losartan 25 MG Tab PO SCH (09:33)
[2023-10-23] MEDS: Apixaban 5 MG Tab PO SCH ×2 (09:35→20:57)
[2023-10-23] MEDS: Acetaminophen 325 MG Tab PO PRN (16:35)
[2023-10-23] MEDS: Nicotine 21 MG/24 Hr Patch TRDERM PRN (17:05)
[2023-10-23] MEDS: chlordiazePOXIDE 25 MG Cap PO SCH (20:57)
[2023-10-23] MEDS: amLODIPine 5 MG Tab PO SCH (20:57)
[2023-10-23] MEDS: atorvaSTATin 10 MG Tab PO SCH (20:58)
[2023-10-23] MEDS: Melatonin 3 MG Tab PO PRN (20:58)
[2023-10-24] MEDS: Pantoprazole 40 MG Tab.CR PO SCH ×2 (05:06→15:55)
[2023-10-24] MEDS: Aspirin 81 MG Tab.Chew PO SCH (08:07)
[2023-10-24] MEDS: Multivitamin Tab PO SCH (08:07)
[2023-10-24] MEDS: Apixaban 5 MG Tab PO SCH ×2 (08:07→20:35)
[2023-10-24] MEDS: Losartan 25 MG Tab PO SCH (08:07)
[2023-10-24] MEDS: Lidocaine 5% 700 MG Patch TOP SCH (08:08)
[2023-10-24] MEDS: Thiamine 100 MG Tab PO SCH (08:08)
[2023-10-24] MEDS: Furosemide 40 MG Tab PO SCH (08:08)
[2023-10-24] MEDS: Sertraline 50 MG Tab PO SCH (08:08)
[2023-10-24] MEDS: chlordiazePOXIDE 25 MG Cap PO SCH (20:34)
[2023-10-24] MEDS: Melatonin 3 MG Tab PO PRN (20:35)
[2023-10-24] MEDS: amLODIPine 5 MG Tab PO SCH (20:35)
[2023-10-24] MEDS: atorvaSTATin 10 MG Tab PO SCH (20:35)
[2023-10-25] MEDS: Pantoprazole 40 MG Tab.CR PO SCH ×2 (05:33→16:15)
[2023-10-25] MEDS: Multivitamin Tab PO SCH (09:12)
[2023-10-25] MEDS: Thiamine 100 MG Tab PO SCH (09:12)
[2023-10-25] MEDS: Losartan 25 MG Tab PO SCH (09:12)
[2023-10-25] MEDS: Aspirin 81 MG Tab.Chew PO SCH (09:12)
[2023-10-25] MEDS: Furosemide 40 MG Tab PO SCH (09:12)
[2023-10-25] MEDS: Apixaban 5 MG Tab PO SCH ×2 (09:12→21:27)
[2023-10-25] MEDS: Sertraline 50 MG Tab PO SCH (09:13)
[2023-10-25] MEDS: Lidocaine 5% 700 MG Patch TOP SCH (09:13)
[2023-10-25] MEDS: chlordiazePOXIDE 25 MG Cap PO SCH (21:27)
[2023-10-25] MEDS: atorvaSTATin 10 MG Tab PO SCH (21:28)
[2023-10-25] MEDS: amLODIPine 5 MG Tab PO SCH (21:28)
[2023-10-25] MEDS: Melatonin 3 MG Tab PO PRN (21:29)
[2023-10-26] MEDS: Pantoprazole 40 MG Tab.CR PO SCH ×2 (05:10→15:29)
[2023-10-26] MEDS: Sertraline 50 MG Tab PO SCH (07:59)
[2023-10-26] MEDS: Aspirin 81 MG Tab.Chew PO SCH (07:59)
[2023-10-26] MEDS: Apixaban 5 MG Tab PO SCH ×2 (07:59→22:02)
[2023-10-26] MEDS: Furosemide 40 MG Tab PO SCH (07:59)
[2023-10-26] MEDS: Thiamine 100 MG Tab PO SCH (07:59)
[2023-10-26] MEDS: Multivitamin Tab PO SCH (07:59)
[2023-10-26] MEDS: Lidocaine 5% 700 MG Patch TOP SCH (08:00)
[2023-10-26] MEDS: Losartan 25 MG Tab PO SCH (08:09)
[2023-10-26] MEDS: amLODIPine 5 MG Tab PO SCH (22:02)
[2023-10-26] MEDS: atorvaSTATin 10 MG Tab PO SCH (22:02)
[2023-10-26] MEDS: chlordiazePOXIDE 25 MG Cap PO SCH (22:03)
[2023-10-27] MEDS: Pantoprazole 40 MG Tab.CR PO SCH ×2 (05:49→15:42)
[2023-10-27] MEDS: Thiamine 100 MG Tab PO SCH (08:02)
[2023-10-27] MEDS: Losartan 25 MG Tab PO SCH (08:02)
[2023-10-27] MEDS: Lidocaine 5% 700 MG Patch TOP SCH (08:02)
[2023-10-27] MEDS: Aspirin 81 MG Tab.Chew PO SCH (08:02)
[2023-10-27] MEDS: Apixaban 5 MG Tab PO SCH ×2 (08:02→20:12)
[2023-10-27] MEDS: Furosemide 40 MG Tab PO SCH (08:02)
[2023-10-27] MEDS: Sertraline 50 MG Tab PO SCH (08:02)
[2023-10-27] MEDS: Multivitamin Tab PO SCH (08:03)
[2023-10-27] MEDS: amLODIPine 5 MG Tab PO SCH (20:12)
[2023-10-27] MEDS: chlordiazePOXIDE 25 MG Cap PO SCH (20:12)
[2023-10-27] MEDS: atorvaSTATin 10 MG Tab PO SCH (20:12)
[2023-10-28] MEDS: Pantoprazole 40 MG Tab.CR PO SCH (05:10)
[2023-10-28] MEDS: Menthol/Zinc Oxide Ointment 113 GM Tube TOP PRN (05:13)
[2023-10-28] MEDS: Sertraline 50 MG Tab PO SCH (08:02)
[2023-10-28] MEDS: Lidocaine 5% 700 MG Patch TOP SCH (08:02)
[2023-10-28] MEDS: Multivitamin Tab PO SCH (08:02)
[2023-10-28] MEDS: Losartan 25 MG Tab PO SCH (08:03)
[2023-10-28] MEDS: Furosemide 40 MG Tab PO SCH (08:03)
[2023-10-28] MEDS: Thiamine 100 MG Tab PO SCH (08:03)
[2023-10-28] MEDS: Aspirin 81 MG Tab.Chew PO SCH (08:03)
[2023-10-28] MEDS: Apixaban 5 MG Tab PO SCH (08:03)
[2023-10-28] MEDS: Acetaminophen 325 MG Tab PO PRN (08:10)
== END 2023-10-28 12:32 | DRG 65 ==
LOC: DL.ED 14:45 → INTOOBSV 17:05 → OBSVTOIN 17:05 → DL.MS 17:05 → UNDOADMOB 17:05 → DL.MS 17:17 → UNDOADMOB 17:17
PROVIDERS: ADMIT Internal Medicine; ATTEND Internal Medicine
DX: I63.49 Cerebral infarction due to embolism of other cerebral artery (principal); F10.99 Alcohol use, unspecified with unspecified alcohol-induced disorder; G81.94 Hemiplegia, unspecified affecting left nondominant side; I10 Essential (primary) hypertension; E78.5 Hyperlipidemia, unspecified; F17.210 Nicotine dependence, cigarettes, uncomplicated; E79.0 Hyperuricemia without signs of inflammatory arthritis and tophaceous disease; M25.562 Pain in left knee; R73.9 Hyperglycemia, unspecified; E87.6 Hypokalemia; R47.81 Slurred speech; R20.2 Paresthesia of skin; F32.A Depression, unspecified; L89.319 Pressure ulcer of right buttock, unspecified stage; F32.89 Other specified depressive episodes; R44.1 Visual hallucinations; Z91.148 Patient's other noncompliance with medication regimen for other reason; Z11.52 Encounter for screening for COVID-19; Z79.899 Other long term (current) drug therapy
CPT/HCPCS: 0240U; 36415; 70450; 70551; 73560-LT; 80048; 80053; 80061; 80143; 80179; 80305-QW; 80307; 81001; 81003; 82947; 83036; 83735; 84439; 84443; 84550; 85025; 85379; 86140; 93005; 93010; 93306; 93880; 96360; 97110-GO; 97110-GP; 97116-GP; 97161-GP; 97165-GO; 97530-GO; 97530-GP; 99285; 99285-25; A9270-GY; C1758; J0360; J2060; J3360; J3411; J3480; J3490; J7120; J8540